=== PATIENT | female | born 1970 | race Caucasian/White ===

== ENCOUNTER 2017-06-24 11:08 | Inpatient (IN) ==
--- NOTE | 2017-06-24 11:54 | Emergency Department Note ---
Augustus Bauer Brooke, am scribing for, and in the presence of, Mane Howard MD 11:40. Anita Bauer Phillip K, MD, personally performed the services described in this documentation, ascribed by Shanae Coffman in my presence, and it is both accurate and complete . Arrival - Arrival Chief Complaint: Abscess Stated Complaint: swelling of abd wall ED Nursing Triage Note: PT C/O ABSCESS/CELLULITIS TO LEFT LOWER ABD. REPORTS IS NOW DRAINING. PT WAS SEEN ON THURSDAY FOR SAME C/O. CT ABD WAS DONE AND PT DIAGNOSED WITH CELLULITIS. PT UNABLE TO GET APPT WITH DR ESTRADA SOON REFERRED. PT ON CLEOCIN. DENIES FEVER. Mode of Arrival: Ambulatory Limitations: No Limitations Source: Patient, RN Notes Reviewed Time Seen by Provider: 06/24/17 11:29 - History of Present Illness HPI Narrative: Patient is a 46 year old female who presents to the ED with c/o abscess to lower lower abdomen. Patient says the abscess started last . She came to the ED, Thursday, and saw Dr. Gregory. She says Dr. Estrada was called but he did not see her and said "since it was not ruptured he did not want to do surgery." Patient says the abscess opened up, last night, and has had "milky red " drainage. Patient says the erythema is better but the pain is not. Patient was prescribed Clindamycin, on Thursday, and started taking it on Thursday. Patient has no other complaints. She has no known medical problems. Onset (ago): day(s) () Allergies/Adverse Reactions: Allergies Allergy/AdvReac Type Severity Reaction Status Date / Time Amoxicillin [From Amoxil] Allergy Swelling Verified 06/24/17 11:21 of Lip/Tongue/Throat Iodinated Contrast Media - Allergy Swelling Verified 06/24/17 11:21 Oral and of Lip/Tongue/Throat Home Medications: Home Medications Medication Instructions Recorded Confirmed Type Clindamycin HCl [Clindamycin Cap] 300 mg PO Q6HR #28 capsule 06/21/17 Rx HYDROcodone/ACETAMIN 5-325 [[place] 1 tablet PO Q6H PRN #10 tablet 06/21/17 Rx 5-325] Review of System - Review of System 12 point system: reviewed and no additional remarkable complaints except as stated - Review of System Constitutional: Absent: fever Respiratory: Absent: respiratory distress Skin: Present: other (abscess to left lower abdomen with "milky red" drainage.) . Absent: rash Medical,Surgical,& Family Hx - Surgical History Abdominal Surgeries: Surgical HX of: Abdominal Surgery (laparoscopy) Reproductive Surgeries: Surgical HX of;: Tubal Ligation - Social History Smoking Status: Never smoker Frequency of Alcohol Use: None Type of Drug Use: None Exam Vital Signs: Vital Signs Temperature 98.8 F 06/24/17 11:29 Pulse Rate 115 H 06/24/17 11:29 Respiratory Rate 19 06/24/17 11:29 Blood Pressure 132/79 06/24/17 11:29 O2 Sat by Pulse Oximetry 98 06/24/17 11:29 - General General appearance: alert, in no apparent distress - Head Head exam: Present: atraumatic, normocephalic - Eye Eye exam: Present: normal appearance, PERRL, EOMI - ENT ENT exam: Present: normal exam - Neck Neck exam: Present: normal inspection - Chest Chest inspection: Present: normal inspection, symmetric chest wall rise - Respiratory Respiratory exam: Present: normal lung sounds bilaterally - Cardiovascular Cardiovascular exam: Present: normal rhythm, tachycardia, normal heart sounds - Abdominal Exam Abdominal exam: Present: soft, normal bowel sounds. Absent: distention, tenderness - Extremities Exam Extremities exam: Present: normal inspection - Back Exam Back exam: Present: normal inspection - Neurological Exam Neurological exam: Present: alert, oriented X3 - Psychiatric Psychiatric exam: Present: normal affect, normal mood - Skin Skin exam: Present: warm, dry, other (5x10cm abscess to the left lower abdomen.) Course Course Narrative: Consult Dr. Villarreal. Disposition Clinical Impression: Abscess of skin or subcutaneous tissue Case discussed with: patient Disposition: Still a Patient
[2017-06-24] MEDS ORDERED: ACETAMINOPHEN 325 MG TABLET PO PRN (12:37)
[2017-06-24 12:57] LABS: Basophils % 0.3 % (0.0-0.8); Eosinophils # 0.1 10*3/uL (0.0-0.87); Eosinophils % 0.9 % (0.00-10.9); Hematocrit 40.3 VOL% (35.7-47.0); Hemoglobin 14.2 GM/DL (12.0-16.0); Immature Granulocytes % 0.9 %; Immature Granulocytes Absolute 0.07 #; Lymphocytes # 1.7 10*3/uL (1.4-4.0); Lymphocytes % 22.8 % (21.3-54.2); Mean Corpuscular HGB Conc 35.2 GM/DL (32-36); Mean Corpuscular Hemoglobin 31 PG (27-34); Mean Corpuscular Volume 88.6 FL (87-102); Mean Platelet Volume 11.9 FL (9.6-12.0); Monocytes # 0.4 10*3/uL (0.11-0.8); Monocytes % 5.4 % (1.7-12.7); Neutrophils # 5.1 10*3/uL (1.4-7.4); Neutrophils % 69.7 % (38.7-73.9); Platelet Count 361 T/CUMM (130-400); Red Blood Count 4.55 MC/CUMM (3.8-5.5); White Blood Count 7.4 T/CUMM (4-12)
[2017-06-24 13:06] LABS: Calcium 9.7 MG/DL (8.5-10.1)
[2017-06-24 13:07] LABS: Osmolality,Calculated 275.7 MOS/KG (273-304)
--- NOTE | 2017-06-24 13:15 | General Surg History&Physical ---
Assessment and Plan - Time spent with patient Time spent with patient: Greater than 30 minutes (1) Abdominal wall cellulitis Status: Acute Assessment and plan: 46-year-old white female with no prior medical history admitted by Dr. Ricks through the emergency room with an abdominal wall abscess with cellulitis. We will go ahead and get some initial labs, start IV antibiotics, pain and nausea control. Patient can eat a regular diet today and will be n.p.o. after midnight for scheduled I&D in the morning by Dr. Ricks. Dr. Ricks has seen and examined patient and further recommendations to follow. Current Visit: No (2) Abscess of skin or subcutaneous tissue Status: Acute Current Visit: Yes History of Present Illness Chief complaint: Abdominal wall pain History of present illness: Ms. Schmidt is a 46 year old white female with no medical history admitted by Dr. Ricks through the emergency department with a left lower abdominal wall abscess. Patient states she came into the ED on Thursday with complaints of fever , chills, redness and warmth to her lower abdomen over her old surgical scar. It has been going on now for [address] the abdomen and pelvis was done that showed localized edema suggesting inflammatory change with no red abscess. Her white count was normal so she was discharged home on clindamycin with follow -up with Dr. Ricks in clinic. Patient states the pain is worse and now it seems to radiate into her pelvis and her hip. She states she has continued to have chills but no fever but more intense pain. Upon exam patient has an area of induration with fluctuance and surrounding cellulitis on the lower left abdominal wall that is tender to touch. Her labs are pending at this time. She is afebrile vital signs are stable. Patient denies headache, dysphagia, chest pain, shortness of breath, constipation or diarrhea, or lower extremity edema. Home Medications Medication Instructions Recorded Confirmed Type Clindamycin HCl [Clindamycin Cap] 300 mg PO Q6HR #28 capsule 06/21/17 06/24/17 Rx HYDROcodone/ACETAMIN 5-325 [[place] 1 tablet PO Q6H PRN #10 tablet 06/21/17 Rx 5-325] Allergies Allergy/AdvReac Type Severity Reaction Status Date / Time Amoxicillin [From Amoxil] Allergy Swelling Verified 06/24/17 11:21 of Lip/Tongue/Throat Iodinated Contrast Media - Allergy Swelling Verified 06/24/17 11:21 Oral and of Lip/Tongue/Throat Medical,Surgical,& Family Hx - Medical History Neurology: No history of: Migraine Endocrine: No history of: Diabetes Mellitus (IDDM) Genitourinary: No history of: Problems - Surgical History Abdominal Surgeries: Surgical HX of: Abdominal Surgery (laparoscopy) Reproductive Surgeries: Surgical HX of;: Tubal Ligation - Family History Family History: Reports;: Family Cancer, Family Diabetes, Family Heart Disease - Social History Smoking Status: Never smoker Frequency of Alcohol Use: None Type of Drug Use: None Marital Status: Single Lives With:: Alone Functional capacity: independent ambulation Exam - Constitutional Vitals: Period Temp Pulse Resp BP Sys/Zavala Pulse Ox Last 24 Hr 98.8 F-98.8 F 86-115 17-19 98-132/78-85 96-98 Exam: Constitutional System: No distress. No tremulousness. Head: Normocephalic, atraumatic. Ears, Nose and Throat System: No evidence of Otitis or Mastoiditis. No epistaxis or discharge Eyes System: Pupils equal, round, and reactive. Extraocular muscles intact. Neck: Supple, without adenopathy, No jugular venous distention. No thyromegaly, neck mass, or prior surgery apparent. Respiratory System: Chest clear to auscultation. Cardiovascular System: Heart with regular rate and rhythm. No murmur. GI System: Abdomen soft, left lower quadrant with cellulitis, induration without fluctuance, minimal drainage. Normo active bowel sounds present. Musculoskeletal System: limbs with no pedal edema. Full distal pulses. Neurological System: No discernable sensory deficit. No aphasia Psychiatric System: Conversation is rational Review of systems: A complete 10 system review of systems was obtained and pertinent positives and negatives per HPI Quality Measures - VTE Contraindication to Pharmacological VTE Prophylaxis: High Risk of Bleeding Results - Labs Labs: Labs are pending - Diagnostic Findings Procedure: CT Abdomen and Pelvis: report reviewed by me (CT done on 06/21/2017 shows localized edema suggesting inflammatory change of the anterior abdominal wall and lower abdomen and pelvis to the left of midline compatible cellulitis. No red abscess seen.)
[2017-06-24] MEDS ORDERED: metroNIDAZOLE 500 MG/100 ML PREMIX IV ONE (15:30)
[2017-06-24] MEDS: metroNIDAZOLE INJ 500 MG in PREMIX 1 EACH IV SCH ×2 (15:32→23:00)
[2017-06-24] MEDS: LEVOFLOXACIN INJ 750 MG in PREMIX 1 EACH IV SCH (19:13)
[2017-06-24] MEDS: LACTATED RINGERS 1,000 ML IV SCH ×2 (19:14→21:16)
[2017-06-25] MEDS: LACTATED RINGERS 1,000 ML IV SCH ×2 (06:05→13:49)
[2017-06-25] MEDS: metroNIDAZOLE INJ 500 MG in PREMIX 1 EACH IV SCH ×4 (06:05→22:09)
[2017-06-25] MEDS: HYDROmorphone 2 MG/1 ML VIAL IV PRN ×3 (07:50→08:00)
[2017-06-25] MEDS ORDERED: HYDROmorphone 2 MG/1 ML VIAL ONE (07:55)
[2017-06-25] MEDS ORDERED: ONDANSETRON 4 MG/2 ML VIAL ONE ×2 (07:55→08:05)
[2017-06-25] MEDS ORDERED: ONDANSETRON 4 MG/2 ML VIAL IV PRN (07:59)
[2017-06-25] MEDS ORDERED: PROPOFOL 200 MG/20 ML VIAL IV ONE (08:03)
[2017-06-25] MEDS ORDERED: SEVOFLURANE 1 UNIT/15 MINUTE INH ONE (08:04)
[2017-06-25] MEDS ORDERED: MIDAZOLAM 2 MG/2 ML VIAL ONE (08:05)
[2017-06-25] MEDS ORDERED: ACETAMINOPHEN 1,000 MG/100 ML VIAL IV ONE (08:05)
[2017-06-25] MEDS ORDERED: fentaNYL 100 MCG/2 ML VIAL ONE (08:05)
--- NOTE | 2017-06-25 09:23 | Anesthesia Post-Op ---
Anesthesia Post OP - Post Ansesthetic Evaluation Patient seen in post op: Yes Resp: within normal limits CV: within normal limits Mental: within normal limits Temp: within normal limits [id number]: within normal limits Nausea and Vomiting: within normal limits Pain: within normal limits
[2017-06-25] MEDS: PANTOPRAZOLE 40 MG TABLET PO SCH (09:53)
[2017-06-25] MEDS: KETOROLAC 10 MG TABLET PO PRN ×2 (14:25→21:35)
[2017-06-25] MEDS: LEVOFLOXACIN INJ 750 MG in PREMIX 1 EACH IV SCH (18:20)
[2017-06-25] MEDS: ONDANSETRON 4 MG/2 ML VIAL IV PRN (21:36)
[2017-06-26] MEDS: metroNIDAZOLE INJ 500 MG in PREMIX 1 EACH IV SCH ×3 (06:03→23:34)
[2017-06-26] MEDS: PANTOPRAZOLE 40 MG TABLET PO SCH (08:52)
--- NOTE | 2017-06-26 11:20 | Event Note ---
46-year-old white female with no medical history admitted by Dr. Villarreal to the emergency room on 06/24/2017 with an abdominal wall abscess. Patient was taken to the operating room on 06/25/2017 for I&D of this abdominal wall abscess by Dr. Villarreal. Patient is still uncomfortable with shooting pains. She is eating a little bit but just not very hungry. She is trying not to use the pain medication but encouraged her to do so. Patient states upon discharge her [id number] can do her packings Afebrile vital signs stable, Left lower quadrant abdominal wound is clean with no signs of purulence but continues to have some mild induration and cellulitis on the periwound. AP--continue antibiotics another day Await final culture results Premedicate prior to dressing changes, wound care orders were written Discussed with Dr. Ricks
[2017-06-26] MEDS: HYDROmorphone 2 MG/1 ML VIAL IV PRN ×2 (11:22→20:47)
[2017-06-26] MEDS: ONDANSETRON 4 MG/2 ML VIAL IV PRN ×2 (11:31→20:48)
--- NOTE | 2017-06-26 11:37 | Operative Note ---
Date of procedure: 06/25/17 Pre-op diagnosis: LLQ abscess Post-op diagnosis: same Procedure: Procedure: I and D LLQ abd wall abscess Detail: After informed consent obtained, patient was taken to operating room and laid supine. After anesthesia induced, abd was prepped and draped in usual sterile fashion. Incision made over the induration and fluctuant areas and purulence encountered. Cx obtained. Loculations freed. Wound irrigated and suctioned. Good hemostasis. Packed. Patient diane procedure well and was taken to PACU in stable condition. Instrument count correct. Anesthesia: GETA Surgeon / Physician: Zane Ricks Estimated blood loss: other (10 cc) Specimens: other (cx) Condition: stable Disposition: PACU Results - Labs CBC & BMP: 06/24/17 11:39 06/24/17 11:39 Discharge Plan - Discharge Medications No Action Clindamycin HCl [Clindamycin Cap] 300 mg PO Q6HR #28 capsule - Follow Up or Referral - Forms/Instructions
[2017-06-26] MEDS: CHLORHEXIDINE 4% SOLN 118 ML BOTTLE TOP SCH (11:55)
[2017-06-26] MEDS: SODIUM HYPOCHLORITE 0.25% IRRIG 473 ML BOTTLE TOP SCH (11:55)
[2017-06-26] MEDS: LEVOFLOXACIN INJ 750 MG in PREMIX 1 EACH IV SCH (17:40)
[2017-06-27] MEDS: metroNIDAZOLE INJ 500 MG in PREMIX 1 EACH IV SCH ×3 (06:12→22:42)
[2017-06-27] MEDS: PANTOPRAZOLE 40 MG TABLET PO SCH (09:10)
--- NOTE | 2017-06-27 09:15 | Event Note ---
06/27/2017 Patient is afebrile vital signs are stable. Wound care is underway to the abdominal wound which shows no significant drainage at this time and no erythematous changes around the incision at this point. Cultures are still pending and she is on antibiotics. She is doing well will wait on the finals on the cultures and try to ensure that she knows how to care for this wound.
[2017-06-27] MEDS: HYDROmorphone 2 MG/1 ML VIAL IV PRN (12:03)
[2017-06-27] MEDS: ONDANSETRON 4 MG/2 ML VIAL IV PRN (12:12)
[2017-06-27] MEDS: CHLORHEXIDINE 4% SOLN 118 ML BOTTLE TOP SCH (12:15)
[2017-06-27] MEDS: SODIUM HYPOCHLORITE 0.25% IRRIG 473 ML BOTTLE TOP SCH (12:15)
[2017-06-27] MEDS: BISACODYL 5 MG TABLET PO PRN (16:56)
[2017-06-27] MEDS: LEVOFLOXACIN INJ 750 MG in PREMIX 1 EACH IV SCH (19:16)
[2017-06-27] MEDS ORDERED: MAGNESIUM CITRATE 300 ML BOTTLE PO ONE (19:58)
[2017-06-28] MEDS: metroNIDAZOLE INJ 500 MG in PREMIX 1 EACH IV SCH (06:26)
[2017-06-28] MEDS: PANTOPRAZOLE 40 MG TABLET PO SCH (08:39)
[2017-06-28] MEDS: BISACODYL 5 MG TABLET PO PRN (08:39)
[2017-06-28] MEDS: CHLORHEXIDINE 4% SOLN 118 ML BOTTLE TOP SCH (08:40)
[2017-06-28] MEDS: SODIUM HYPOCHLORITE 0.25% IRRIG 473 ML BOTTLE TOP SCH (08:40)
--- NOTE | 2017-06-28 09:47 | Event Note ---
06/28/2017. Patient remains afebrile the abdominal wound looks clean and dry at this time. She seems to have some help it feels like that they could probably manage this at home at some point. Cultures were were reviewed and she is sensitive to the Levaquin and will keep her on that at this time but will switch over to p.o.
[2017-06-28] MEDS: LEVOFLOXACIN 500 MG TABLET PO SCH (10:02)
[2017-06-28] MEDS: HYDROmorphone 2 MG/1 ML VIAL IV PRN (10:02)
[2017-06-28] MEDS: ONDANSETRON 4 MG/2 ML VIAL IV PRN (10:06)
[2017-06-28] MEDS ORDERED: MAGNESIUM CITRATE 300 ML BOTTLE PO ONE (10:41)
[2017-06-29] MEDS: HYDROmorphone 2 MG/1 ML VIAL IV PRN (10:31)
[2017-06-29] MEDS: PANTOPRAZOLE 40 MG TABLET PO SCH (10:31)
[2017-06-29] MEDS: ONDANSETRON 4 MG/2 ML VIAL IV PRN (10:31)
[2017-06-29] MEDS: LEVOFLOXACIN 500 MG TABLET PO SCH (10:31)
[2017-06-29] MEDS: CHLORHEXIDINE 4% SOLN 118 ML BOTTLE TOP SCH (10:35)
[2017-06-29] MEDS: SODIUM HYPOCHLORITE 0.25% IRRIG 473 ML BOTTLE TOP SCH (10:35)
--- NOTE | 2017-06-29 11:11 | Discharge Summary ---
Hospital Course - Hospital Course Hospital Course: 46-year-old white female with no prior medical history admitted by Dr. Ricks through the emergency room on 06/24/2017 with an abdominal wall abscess with cellulitis. She was started on IV antibiotics, pain, and nausea control and taken to the OR on 06/25/2017 for I&D of this abdominal wall abscess. Patient was held a couple extra days due to cellulitis and induration but this is significantly improved this morning. She still has some issues with pain with dressing changes but this is also improved somewhat since Thursday. Her cultures grew staph that is sensitive to Levaquin. She will be discharged home with pain medication and antibiotics for 1 week with a follow-up with Dr. Ricks in 1 week. Complete discharge instructions were given to the patient including wound care. Care coordination, chart review, and completed discharge paperwork took approximately 34 minutes. - Time spent with patient Time with patient DS: Greater than 30 minutes Diagnosis - Discharge Diagnosis (1) Abdominal wall cellulitis Status: Inactive (2) Abscess of skin or subcutaneous tissue Status: Acute Specialty Discharge - Follow Up or Referrals Follow up with: Zane Ricks MD [Physician] - 07/01/17 10:30 am Discharge Plan - Discharge Data Disposition: Disch To Home/Self Care Condition at Discharge: Stable Discharge Diet: advance to your usual diet Activity: resume usual activities as tolerated Hygiene: may shower Driving: other (No driving if taking pain medications) Contact your physician if you experience:: fever over 101, Redness or swelling Wound / Dressing Care Instructions: Shower daily with Hibiclens and rinse with water, irrigate and pack with saline moistened gauze, cover with dry gauze and paper tape - Discharge Medications New HYDROcodone/ACETAMIN 7.5-325 [[place] 7.5-325] 1 - 2 tablet PO Q4H PRN #45 tablet PRN Reason: Pain Moderate (4-7) Levofloxacin Tab [Levaquin Tab] 500 mg PO DAILY #7 tablet Sodium Hypochlorite 0.25% Irr [[place] 1/2 Strength 0.25% Soln] 1 applic TOP DAILY applic Discontinued Clindamycin HCl [Clindamycin Cap] 300 mg PO Q6HR #28 capsule - Follow Up or Referral Follow Up: Zane Ricks MD [Physician] - 07/01/17 10:30 am - Forms/Instructions Exam - Constitutional Vitals: Period Temp Pulse Resp BP Sys/Zavala Pulse Ox Last 24 Hr 97.0 F-98.0 F 66-90 17-20 109-128/63-84 96-99 DS: Provider Date of admission: 06/24/17 16:43 Primary care physician: . No PCP Attending physician on admission: Mane Howard, Consults: 06/24/17 12:51 Consult to Anesthesiology [CONS] Routine Consulting Provider: Reason for Anesthesiology: Pre-op Clearance Discharging clinician: BILLIE Schofield Expected date of discharge: 06/29/17
[2017-06-29 11:19] VITALS: BP 99/57
== END 2017-06-29 15:18 | disposition home or self-care (01) | DRG 603 ==
LOC: N.ED 11:08 → N.3E 16:00
PROVIDERS: ADMIT Emergency Medicine; ATTEND Emergency Medicine